=== PATIENT | male | born 2000 | race African-American/Black ===

== ENCOUNTER 2019-10-04 16:06 | Emergency (ER) | payer MEDICAID ==
[~2019-10-04] VITALS: Ht 177.8 cm; Wt 73.0 kg
[2019-10-04] MEDS ORDERED: ESCI20TA PO (17:40)
[2019-10-04] MEDS: LORAZEPAM 1MG TABLET PO ONE (23:45)
[2019-10-04 23:59] LABS: BASOPHILS % 0.9 % (0.0-2.0); EOSINOPHILS % 0.8 % (0.0-5.0); HEMATOCRIT. 37.1 % (42.0-52.0); HEMOGLOBIN. 12.4 g/dL (14.0-18.0); LYMPHOCYTES % 17.1 % (20.0-50.0); MEAN CORPUSCULAR HEMOGLOBIN 30.1 pg (28.0-32.0); MEAN CORPUSCULAR VOLUME 89.8 fL (80.0-94.0); MEAN PLATELET VOLUME 8.8 fl (7.4-10.4); MONOCYTES % 9.1 % (2.0-8.0); NEUTROPHILS % 72.1 % (40.0-76.0); PLATELET 274 x1000/uL (130-400); RED BLOOD CELL COUNT 4.13 mill/uL (4.7-6.1); RED CELL DISTRIBUTION WIDTH 13.6 % (11.6-14.6)
[2019-10-05] LABS: CHLORIDE 105 mEq/L (98-107)
[2019-10-05 00:04] LABS: ETHANOL BLOOD < 10 mg/dL
[2019-10-05] MEDS: QUETIAPINE FUMARATE 50MG TABLET PO ONE (00:56)
[2019-10-05 11:29] VITALS: BP 106/62
== END 2019-10-05 11:33 | disposition home or self-care (01) ==
LOC: ER 18:37
DX: R41.82 Altered mental status, unspecified (principal); G92 Toxic encephalopathy; T40.8X1A Poisoning by lysergide [LSD], accidental (unintentional), initial encounter; Y92.89 Other specified places as the place of occurrence of the external cause; F12.10 Cannabis abuse, uncomplicated; J45.909 Unspecified asthma, uncomplicated; F32.9 Major depressive disorder, single episode, unspecified; Z88.8 Allergy status to other drugs, medicaments and biological substances
CPT/HCPCS: 36415; 80053; 80307; 80320; 80329; 84443; 85025; 93005; 99284; Z7610; G0480

== ENCOUNTER 2019-11-10 09:28 | Emergency (ER) | payer MEDICAID ==
[~2019-11-10] VITALS: Ht 182.9 cm; Wt 78.0 kg
[~2019-11-10 09:28] MED LIST: ESCI20TA PO
[2019-11-10 09:56] VITALS: BP 124/68
== END 2019-11-10 11:45 | disposition left against medical advice (07) ==
LOC: ER 09:28
DX: Z53.21 Procedure and treatment not carried out due to patient leaving prior to being seen by health care provider (principal); J45.909 Unspecified asthma, uncomplicated; F32.9 Major depressive disorder, single episode, unspecified